=== PATIENT | female | born 1975 | race Caucasian/White ===

== ENCOUNTER 2022-08-02 08:42 | Day surgery (SDC) | payer MEDICAID, SELFPAY ==
[2022-08-02] VITALS (8 sets, daily range): BP systolic 110–149; BP diastolic 73–111; PULSE 60–97; RESP 14–22; TEMP 36.2–36.4; O2SAT 97–100; BMI 23.6
--- NOTE | 2022-08-02 06:25 | ANES.PREOP_ITS ---
General Info Date of Service Date Performed: 08/02/22 Height: 5 ft 11 in Weight: 76.657 kg Body Mass Index (BMI): 23.6 Surgical Procedure: Operation Date: 08/02/22 09:55 Proposed Procedure Side Surgeon p Cystoscopy/Laser/Retrograde/Ureteroscopy/Stone Manipulation/? Stent Placement Left Papito Silvestre MD Meds Allergies and Home Medications Allergies Allergy/AdvReac Type Severity Reaction Status Date / Time No Known Allergies Allergy Verified 07/29/22 14:08 Home Medication Medication Instructions Recorded lactobacillus combination no.4 3 3,000 mmu cells PO DAILY 07/22/22 billion cell capsule (Probiotic) norgestimate 0.25 mg-ethinyl 1 tab PO DAILY 07/22/22 estradiol 35 mcg tablet (Sprintec (28)) tamsulosin 0.4 mg capsule (Flomax) 0.4 mg PO DAILY #30 caps 07/22/22 Current Visit Medications: Current Medications Generic Name Dose Route Start Last Admin Trade Name Freq PRN Reason Stop Dose Admin Ringer's Solution 1,000 mls @ 80 mls/hr 08/02/22 06:00 IV 08/29/22 23:59 INFUSION GRACIELA Cefazolin Sodium/Dextrose 2 gm in 50 mls @ 100 mls/hr 08/02/22 06:00 Ancef Duplex IVPB 08/29/22 23:59 PREOP GRACIELA IV Miscellaneous Supplies 1 each 08/02/22 06:00 Iv Access IV 08/29/22 23:59 DIRECTED GRACIELA Sodium Chloride 0 ml 08/02/22 06:00 Normal Saline Flush 10 Ml Syr IV 08/29/22 23:59 PRN PRN Sodium Chloride 0 ml 08/02/22 06:00 Normal Saline 10 Ml Vial IJ 08/29/22 23:59 DIRECTED PRN Sterile Water 0 ml 08/02/22 06:00 Water,Injection,Sterile 10 Ml Vial IJ 08/29/22 23:59 DIRECTED PRN PFSH Active Problems Active Problems: Problem Status Onset Code Kidney stone N20.0 Medical History Medical History Kidney stone Refusal of blood transfusions as patient is [employer] Surgical History Surgical History (Updated 07/29/22 @ 14:06 by Alfred Roque) Hx of lumpectomy Hx of wisdom tooth extraction Tobacco Smoking/Tobacco Use Status: Never Alcohol Alcohol Intake: never Substance Use Substance use: Never Substance use type: does not use Vital Signs and Lab Results Vital Signs Most Recent Vital Signs in EMR: Temp Pulse Resp BP Pulse Ox 36.4 C L 79 16 145/111 H 99 08/02/22 08:59 08/02/22 08:59 08/02/22 08:59 08/02/22 08:59 08/02/22 08:59 Lab Results Blood Type / Crossmatch: No Data to Display Complete Blood Count: No Data to Display Complete Metabolic Panel: No Data to Display Liver Function Panel: No Data to Display Coagulation Panel: No Data to Display Cardiac Panel: No Data to Display Arterial Blood Gas: No Data to Display Venous Blood Gas: No Data to Display Pancreas Panel: No Data to Display Thyroid Panel: No Data to Display Infectious Disease: No Data to Display Blood Cultures: No Data to Display Toxicology Panel: 2 No Data to Display Panel: No Data to Display Anesthesia Assessment and Plan Anesthesia History Personal History: No History of Anesthesia Complications Family History: No Family History of Anesthesia Complications Exercise Tolerance Exercise Tolerance: Metabolic Equivalents>4 Cardiac & Pulmonary Exam Cardiac Exam: Normal S1/S2 Heart Sounds Pulmonary Exam: Clear Bilateral Breath Sounds Implantable Cardiac Device Does patient have a Pacemaker or an ICD?: No Airway Exam Known Difficult Airway: No Mallampati Class: 4 Mouth Opening: Normal (> 3cm) Thyromental Distance: Greater than 3 cm Neck Range of Motion: Full ROM Neck Circumference: Normal Teeth Condition: Normal Dentition ASA Classification ASA Score: ASA 2 Emergency Case?: No NPO Status NPO Status: NPO Clears >2 hours, Solids >8 hours Status Status: Negative HCG Anesthesia Plan Resuscitation Status: Full Code Anesthesia Technique: General Anesthesia Airway Planned: LMA Monitors Used: Standard Monitors Preoperative Comments:: 47 yo female with kidney stone for cysto. Currently 2/10 pain angel. Sig PMHx: never smoker/EtOH, denies major. JW - no blood
--- NOTE | 2022-08-02 09:23 | W.PM.HP.N ---
Date of service: 08/02/22 Time of Service: : Assessment and Plan Assessment and plan (1) Left ureteral stone: Status: Acute Assessment and plan: For cystoscopy, left retrograde pyelogram, left ureteroscopy with holmium laser lithotripsy and stone extraction. History of Present Illness History of Present Illness Chief Complaint: Ureteral stone Narrative: This is a 47-year-old woman who does have a previous history of kidney stones. Her prior stones occurred during and required some type of surgical procedure after delivery. She believes she may have had a lithotripsy rather than ureteroscopy. We have no record of her previous stone analysis. She presented to an outside hospital recently with left-sided renal colic. She was found to have a 5 mm mid ureteral stone. She was treated conservatively but her stone has not yet passed. She presents now for stone manipulation. She continues to have left back discomfort. She has no dysuria or gross hematuria. Review of Systems Narrative: No fevers or chills No vision change or dysphasia No diabetes or thyroid dysfunction No shortness of breath, cough or hemoptysis No chest pain or palpitations No nausea, vomiting, hepatitis, ulcers, jaundice No seizures, strokes or peripheral neuropathy No bleeding disorders or anemia No gout PFSH All Active Problems (Updated 08/02/22 @ 09:27 by Papito Silvestre MD) Left ureteral stone (Acute) Medical History Kidney stone Refusal of blood transfusions as patient is Mu-ism Surgical History (Updated 07/29/22 @ 14:06 by Alfred Roque) Hx of lumpectomy Hx of wisdom tooth extraction Social History Smoking/Tobacco Use Status: Never Smoking risk assessment performed?: Yes Alcohol Intake: never Drug use: Never Substance use type: does not use Do you feel safe at home: Yes Do you feel safe in your relationship?: Yes Meds Allergies and Home Medications Allergies Allergy/AdvReac Type Severity Reaction Status Date / Time No Known Allergies Allergy Verified 07/29/22 14:08 Home Medications Medication Instructions Recorded Confirmed Type lactobacillus combination no.4 3 3,000 mmu cells PO DAILY 07/22/22 08/02/22 History billion cell capsule (Probiotic) norgestimate 0.25 mg-ethinyl 1 tab PO DAILY 07/22/22 08/02/22 History estradiol 35 mcg tablet (Sprintec (28)) tamsulosin 0.4 mg capsule (Flomax) 0.4 mg PO DAILY #30 caps 07/22/22 08/02/22 Rx Exam Const General: cooperative Neck Neck: supple Resp Effort & Inspection: normal respiratory effort Auscultation: clear to auscultation bilaterally Cardio Rate: regular rate Rhythm: regular rhythm GI Palpation: soft and no masses Neuro General: patient alert, patient awake and patient oriented x3 Results Last Vital Signs Temp 36.4 C L 08/02/22 08:59 Pulse 79 08/02/22 08:59 Resp 16 08/02/22 08:59 BP 145/111 H 08/02/22 08:59 Pulse Ox 99 08/02/22 08:59 Time Spent Time spent with Patient: <40 minutes Time was spent: care coordination
[2022-08-02] MEDS: Lactated Ringers 1,000 ML 80 ML IV (09:28)
[2022-08-02] MEDS: ceFAZolin 2 GM/50 ML BAG IVPB (10:01)
[2022-08-02] MEDS: Omnipaque 300 MG/ML 50 ML BTL (10:26)
[2022-08-02] MEDS: Lidocaine 2% Jelly 6 ML SYR (10:26)
--- NOTE | 2022-08-02 10:45 | DI.RAD_ITS ---
Exam(s) XR RETROGRADE IN OR EXAM: XR RETROGRADE IN OR CLINICAL HISTORY: LEFT URETERAL STONE TECHNIQUE: 2D and realtime digital imaging was performed. CONTRAST MATERIAL: Refer to procedure report. COMPARISON: CT CT ABD AND PELVIS WITHOUT CONT from 07/08/2022 FINDINGS: Fluoroscopy was provided for Dr. Silvestre during the performance of a retrograde evaluation of the domenica l collecting system. Please refer to the procedure report for complete details. Ka,r=9.6 mGy IMPRESSION: RADIATION DOSE DELIVERED:
--- NOTE | 2022-08-02 10:50 | W.PM.DSUDISC ---
Date of service: 08/02/22 Time of Service: 10:50 Discharge Plan Disposition Patient Disposition: Home Condition: Stable Discharge Details Reason For Visit: ureteral stone Attending Provider: Papito Silvestre Primary Care Provider: Elvi Mancia Home Meds and New Rx's Prescriptions: No Action norgestimate-ethinyl estradiol [Sprintec (28)] 0.25-35 mg-mcg tablet 1 tab PO DAILY Probiotic 3 billion cell capsule 3,000 mmu cells PO DAILY Rx Instructions: administer with a meal tamsulosin [Flomax] 0.4 mg capsule 0.4 mg PO DAILY Qty: 30 0RF Discharge Instructions Additional Instructions: no need to strain urine followup 3 to 7 days for stent removal - tell my office there is a string on the stent followup appt 6 to 8 weeks with renal US (in office) Stand Alone Forms: Anesthesia Discharge Inst., Brenna Adame (DSU) Activity:: Activity as Tolerated Shower/Bathe:: 24 hours Diet:: As Tolerated Discharge Orders Discharge Orders: Discharge Order (Routine); Ordered 08/02/22 Ordered By: Papito Silvestre DS: Diagnosis Discharge Diagnosis (1) Left ureteral stone: Status: Acute
--- NOTE | 2022-08-02 10:56 | W.PM.OP ---
Date of service: 08/02/22 Time of Service: 10:56 Operative Note Operative Note DATE OF PROCEDURE: 08/02/22 PRE-OP DIAGNOSIS: Left ureteral stone POST-OP DIAGNOSIS: same PROCEDURE: cystoscopy, left retrograde pyelogram, left flexible ureteroscopy, stone extraction, insert left ureteral stent SURGEON: Papito Silvestre ANESTHESIA TYPE: General LMA/ETT Refer to Anesthesia Record ESTIMATED BLOOD LOSS: 5 PATHOLOGY: other (stone for chemical analysis) COMPLICATIONS: None Patient was transported to: PACU Patient's condition: stable Implants: 4.8 [place] by 22 to 30 cm left ureteral stent Indications: This is a 47-year-old woman who presented to an outside hospital with a left renal colic. She was identified as having a 5 mm left ureteral stone. She was treated conservatively but her symptoms persisted. She has not passed her stone. She presents for stone manipulation. Findings: left proximal ureteral stone Procedure Description: The patient was given preoperative IV antibiotics and brought to the operating room on 08/02/2022. After successful induction of general anesthesia, she was placed in the dorsal lithotomy position. Her genitalia was prepped and draped. 2% Xylocaine jelly was instilled into the urethra to act as a local anesthetic. The 22 [place] rigid cystoscope was passed through the urethra into the bladder. The bladder was inspected with a 30 degree lens. Both ureteral orifices appeared normal with no blood coming from either side. The left orifice was cannulated with a 5 [place] access catheter and a retrograde film was obtained by injecting Omnipaque through the access catheter under fluoroscopic guidance. A filling defect in the left proximal ureter was identified. I then passed a guidewire through the lumen of the access catheter and advanced the wire up to the upper pole calyx. The ureteral access catheter was removed and was replaced with a dual-lumen catheter. We then positioned a second wire. We chose one of the wires as a working wire and the other as a safety wire. We passed a ureteral access sheath over the working wire. We then passed a flexible ureteroscope through the sheath into the upper ureter. A stone was seen in the region of the previous filling defect. The stone seem to be floating freely within the ureter, so I was able to grasp the stone and a 0 tip stone basket and remove it in its entirety. The stone was sent to pathology for chemical analysis. The ureteral access sheath was then removed and replaced with a dual-lumen catheter. A retrograde pyelogram was obtained and no ureteral injury was identified. We then removed the dual-lumen catheter and passed a 4.8 [place] variable length stent over the wire. The proximal end of the stent was curled in the renal pelvis and the distal end was curled within the bladder. The positioning of the stent was confirmed both fluoroscopically and cystoscopically. The safety string was left in place and brought through the patient's urethra. The end of the safety string was tucked into the patient's vaginal cavity. The patient tolerated this procedure well with no complications.
--- NOTE | 2022-08-02 11:38 | W.ANESPOSTOP ---
Postoperative Evaluation Date, Time and Location Date Performed: 08/02/22 Time Performed: 11:38 Patient Location: Day Surgery Unit Vital Signs Most Recent Imported Vital Signs: Most Recent Vital Signs Temp Pulse Resp BP Pulse Ox 36.3 C L 68 14 147/95 H 99 08/02/22 11:25 08/02/22 11:25 08/02/22 11:25 08/02/22 11:25 08/02/22 11:25 Pain Score Most Recent Pain Score: Most Recent Pain Score Pain Level 0 08/02/22 11:25 Assessment Mental Status: Awake (Alert & Oriented to Patient Baseline) Airway and Respiratory Function: Patent airway with normal (patient baseline) respiratory exam Cardiovascular Function: Hemodynamically Stable Hydration Status: Adequately Hydrated Nausea & Vomiting: No Nausea or Vomiting Pain: Pain is tolerable per patient Peripheral Nerve Block: Patient did not receive a nerve block
[2022-08-02] MEDS: Phenazopyridine 200 MG TAB PO (12:17)
[2022-08-05 23:56] LABS: Source: Left Ureter
== END 2022-08-02 12:25 | disposition home or self-care (01) ==
PROVIDERS: PCP Family Medicine; Visit Provider Urology
PROC: (CPT 52352; principal; 2022-08-02 09:45)
DX: N20.1 Calculus of ureter (principal)
CPT/HCPCS: 52352; 52332; 74420; 82365; J0690; J1100; J2001; J2405; J2704; Q9967